=== PATIENT | female | born 1980 | race Caucasian/White ===

== ENCOUNTER → 2017-03-04 | Outpatient (CLI) | payer OTHER ==
[~2017-03-04] MED LIST: None per pt
== END ==
LOC: STAR 15:47
PROVIDERS: ATTEND Obstetrics & Gynecology Female Pelvic Medicine and Reconstructive Surgery
DX: Z02.9 Encounter for administrative examinations, unspecified (principal)

== ENCOUNTER 2017-03-09 05:37 | Day surgery (SDC) | payer OTHER ==
[~2017-03-09] VITALS: Ht 170.2 cm; Wt 107.0 kg
[2017-03-09] MEDS ORDERED: LACTATED RINGERS 1,000 ML IV SCH (06:04)
[2017-03-09 06:25] LABS: HCG UR LOT HCG7030192
[2017-03-09 06:27] LABS: HCG UR OBC PASS
[2017-03-09] MEDS ORDERED: EPINEPHRINE 1 MG/ML, 1ML ONE (06:49)
[2017-03-09] MEDS ORDERED: BUPIVACAINE/PF 0.25% ONE (06:49)
[2017-03-09] MEDS ORDERED: MIDAZOLAM 1 MG/ML, 2ML ONE (07:14)
[2017-03-09] MEDS ORDERED: SUFentanil 50 MCG/ML, 2ML ONE (07:14)
[2017-03-09] MEDS ORDERED: PROPOFOL 10 MG/ML, 20ML ONE (07:17)
[2017-03-09] MEDS ORDERED: PHENYLEPHRINE 10 MG/ML ONE ×2 (07:17)
[2017-03-09] MEDS ORDERED: LIDOCAINE-MPF 2% ,5ML ONE (07:17)
[2017-03-09] MEDS ORDERED: CEFOTETAN PMX 2GM/50ML 50 ML ONE (07:20)
[2017-03-09] MEDS ORDERED: ROCURONIUM 10 MG/ML ONE (07:31)
[2017-03-09] MEDS ORDERED: DEXAMETHASONE 4 MG/ML, 1ML ONE ×3 (07:39→09:27)
[2017-03-09] MEDS ORDERED: ONDANSETRON 2MG/ML, 2ML IVPush PRN (08:00)
[2017-03-09] MEDS ORDERED: MEPERIDINE/PF 25MG/0.5ML IVPush PRN (08:00)
[2017-03-09] MEDS ORDERED: OXYcodone 5 MG/5 ML ORAL.SOL UDC PO PRN (08:00)
[2017-03-09] MEDS ORDERED: LABETALOL 5MG/ML, 20ML IV PRN (08:00)
[2017-03-09] MEDS ORDERED: ACETAMINOPHEN 325 MG TABLET PO PRN (08:00)
[2017-03-09] MEDS ORDERED: PROMETHAZINE 25 MG/ML, 1ML IV PRN (08:00)
[2017-03-09] MEDS ORDERED: hydrALAzine 20 MG/ML, 1ML IV PRN (08:00)
[2017-03-09] MEDS ORDERED: LORazepam 2 MG/ML, 1ML IVPush PRN (08:00)
[2017-03-09] MEDS ORDERED: FENTANYL PF 100 MCG/2ML IV PRN (08:00)
[2017-03-09] MEDS ORDERED: ONDANSETRON 2MG/ML, 2ML ONE ×2 (08:35)
[2017-03-09] MEDS ORDERED: KETOROLAC 30 MG/1 ML ONE (08:35)
[2017-03-09] MEDS ORDERED: HYDROmorphone 1 MG/ML, 1ML ONE (09:07)
[2017-03-09] MEDS ORDERED: MEPERIDINE/PF 25MG/0.5ML ONE (09:07)
[2017-03-09] MEDS ORDERED: ACETAMINOPHEN 650 MG/20.3 ML UDC ONE (09:07)
[2017-03-09] MEDS ORDERED: ACETAMINOPHEN 325 MG TABLET ONE (09:07)
[2017-03-09] MEDS ORDERED: OXYcodone 5 MG/5 ML ORAL.SOL UDC ONE (09:08)
[2017-03-09] MEDS: HYDROmorphone 1 MG/ML, 1ML IV PRN ×2 (09:21→09:32)
== END 2017-03-09 15:55 ==
LOC: OUT 05:37
PROVIDERS: ATTEND Obstetrics & Gynecology Female Pelvic Medicine and Reconstructive Surgery
DX: D25.9 Leiomyoma of uterus, unspecified (principal); N92.1 Excessive and frequent menstruation with irregular cycle; N94.6 Dysmenorrhea, unspecified
CPT/HCPCS: 58552; 81025; 88307; J0171; J1100; J1170; J1885; J2175; J2250; J2370; J2405; J2704; J3490; J7120; S0074